=== PATIENT | female | born 1980 | race Two or more races ===

== ENCOUNTER → 2020-01-20 | Outpatient (CLI) | payer OTHER ==
--- NOTE | 2020-01-20 11:59 | REP ---
CHEST, TWO VIEWS: Two views of the chest are performed. There is linear discoid atelectasis in the right base. No infiltrate is seen. The heart is normal in size and the mediastinal silhouette is unremarkable. IMPRESSION: No acute infiltrate. Discoid atelectasis right lung base. Electronically Signed by Chance Rashid MD 01/20/2020 12:19 P
== END ==
LOC: M LRY 11:09
PROVIDERS: ATTEND Nurse Practitioner Family
DX: R68.89 Other general symptoms and signs (principal)
CPT/HCPCS: 71046; 87804; G0463